=== PATIENT | female | born 1990 | race Caucasian/White ===

== ENCOUNTER → 2016-12-08 | Outpatient (CLI) | payer OTHER | LOC: FIMAGING 12:01 | PROVIDERS: ATTEND Advanced Practice Midwife | DX: O40.2XX0 Polyhydramnios, second trimester, not applicable or unspecified (principal); Z3A.21 21 weeks gestation of pregnancy ==

== ENCOUNTER → 2017-04-24 | Outpatient (CLI) | payer OTHER | LOC: FIMAGING 09:50 | PROVIDERS: ATTEND Advanced Practice Midwife | DX: O48.0 Post-term pregnancy (principal); Z3A.41 41 weeks gestation of pregnancy ==

== ENCOUNTER 2019-03-04 14:37 | Emergency (ER) | payer OTHER ==
[2019-03-04] MEDS ORDERED: KETOROLAC 30 MG/1 ML SDV IVP ONE (15:00)
[2019-03-04] MEDS ORDERED: ONDANSETRON 4 MG/2 ML VIAL IVP ONE (15:00)
[2019-03-04] MEDS ORDERED: ACETAMINOPHEN 500 MG TAB PO ONE (15:03)
[2019-03-04] MEDS ORDERED: NS 1,800 ML IV ONE (15:03)
--- NOTE | 2019-03-04 15:09 | EDPHY ---
H & P Stated Complaint: fever 103.5, n/v/d starting last night Time Seen by Provider: 03/04/19 14:55 HPI/ROS: CHIEF COMPLAINT: Vomiting, diarrhea and syncope HISTORY OF PRESENT ILLNESS: Patient is a 28-year-old female with a history of ulcerative colitis who states that she was in the middle of a flare and recently had her prednisone use decreased from 15-25 mg. She is followed by [facility]. She also takes Humira. She is in her normal state of health until yesterday evening after going out to dinner she developed nausea and vomiting as well. No blood in her vomit. She does have a slight amount of blood in her stool which is not unusual for her. She also developed a fever. She denies focal abdominal pain but she does have general abdominal cramping. Today her and her became concerned because she was sitting on the toilet and vomiting anterior trash can when she became lightheaded and slumped over against the wall. states that this happened 2 more times over the next hour while he was helping her in the bathroom. She does think that she lost consciousness. She denies chest pain, shortness of breath or palpitations. She states that in the past she has had to come to the ER to get rehydrated. Severity: Moderate Modifying factors: None REVIEW OF SYSTEMS: Constitutional: denies: chills, fever, recent illness, recent injury EENTM: denies: blurred vision, double vision, nose congestion Respiratory: denies: cough, shortness of breath Cardiac: denies: chest pain, irregular heart rate, lightheadedness, palpitations Gastrointestinal/Abdominal: See HPI Genitourinary: denies: dysuria, frequency, hematuria, pain Musculoskeletal: denies: joint pain, muscle pain Skin: denies: lesions, rash, jaundice, bruising Neurological: denies: headache, numbness, paresthesia, tingling, dizziness, weakness Hematologic/Lymphatic: denies: blood clots, easy bleeding, easy bruising Immunologic/allergic: denies: HIV/AIDS, transplant 10 systems reviewed and negative except as noted EXAM: GENERAL: Well-appearing, well-nourished and in no acute distress. HEAD: Atraumatic, normocephalic. EYES: Pupils equal round and reactive to light, extraocular movements intact, sclera anicteric, conjunctiva are normal. ENT: TMs normal, nares patent, oropharynx clear without exudates. Moist mucous membranes. NECK: Normal range of motion, supple without lymphadenopathy or JVD. LUNGS: Breath sounds clear to auscultation bilaterally and equal. No wheezes rales or rhonchi. HEART: Regular rate and rhythm without murmurs, rubs or gallops. ABDOMEN: Soft, nontender, normoactive bowel sounds. No guarding, no rebound. No masses appreciated. BACK: No CVA tenderness, no spinal tenderness, step-offs or deformities EXTREMITIES: Normal range of motion, no pitting or edema. No clubbing or cyanosis. NEUROLOGICAL: Cranial nerves II through XII grossly intact. Normal speech, normal gait. 5/5 strength, normal movement in all extremities, normal sensation , normal reflexes PSYCH: Normal mood, normal affect. SKIN: Warm, dry, normal turgor, no visible rashes or lesions. Source: Patient Exam Limitations: No limitations - Personal History LMP (Females 10-55): 8-14 Days Ago Current Tetanus/Diphtheria Vaccine: Yes Current Tetanus Diphtheria and Acellular Pertussis (TDAP): Yes - Medical/Surgical History Hx Asthma: No Hx Chronic Respiratory Disease: No Hx Diabetes: No Hx Cardiac Disease: No Hx Renal Disease: No Hx Cirrhosis: No Hx Alcoholism: No Hx HIV/AIDS: No Hx Splenectomy or Spleen Trauma: No Other PMH: ulcerative colitis - Family History Significant Family History: No pertinent family hx - Social History Smoking Status: Never smoked Alcohol Use: Sober Drug Use: None Constitutional: Initial Vital Signs Temperature (C) 38.1 C 03/04/19 14:46 Heart Rate 120 H 03/04/19 14:46 Respiratory Rate 16 03/04/19 14:46 Blood Pressure 117/80 03/04/19 14:46 O2 Sat (%) 95 03/04/19 14:46 O2 Delivery Mode Room Air Allergies/Adverse Reactions: No Known Allergies Allergy (Verified 03/04/19 14:49) Home Medications: Medication Instructions Recorded Apriso 0.375 gm 06/19/18 predniSONE 40 mg PO DAILY #10 tab 06/19/18 Humira 03/04/19 Medical Decision Making ED Course/Re-evaluation: 4:30 p.m. the patient is feeling much better. No more vomiting or diarrhea. Her abdominal exam is benign and nontender. She continues to decline CT scan. She has received 2 L of fluid. She has not yet urinated. Will add a 3rd L of fluid. She is tolerating p.o. White blood cell count is slightly elevated but similar to her previous. Likely from her chronic prednisone use. 5:50 p.m. Patient is feeling completely better. Abdominal exam remains benign. She declines prescriptions. She is eager to go home. Discussed indications for returning. Differential Diagnosis: Partial list of the Differential diagnosis considered include but were not limited to; gastritis, dehydration, food poisoning, ulcerative colitis and although unlikely based on the history and physical exam, I also considered appendicitis, biliary disease, ischemia, obstruction, ovarian cyst, torsion, , UTI. I discussed these differential diagnoses and the plan with the patient as well as the usual and expected course. The patient understands that the diagnosis is provisional and that in medicine we are not always correct and that further workup is often warranted. Usual and customary warnings were given. All of the patient's questions were answered. The patient was instructed to return to the emergency department should the symptoms at all worsen or return, otherwise to followup with the physician as we discussed. - Data Points Laboratory Results: Laboratory Results 03/04/19 15:20 03/04/19 15:20 03/04/19 03/04/19 03/04/19 16:56 15:20 15:20 WBC RBC Hgb Hct MCV MCH MCHC RDW Plt Count MPV Neut % (Auto) Lymph % (Auto) [place] % (Auto) Eos % (Auto) Baso % (Auto) Nucleat RBC Rel Count Absolute Neuts (auto) Absolute Lymphs (auto) Absolute Monos (auto) Absolute Eos (auto) Absolute Basos (auto) Absolute Nucleated RBC Immature Gran % Immature Gran # VBG Lactic Acid 0.6 mmol/L L mmol/L (0.7-2.1) Sodium Potassium Chloride Carbon Dioxide Anion Gap BUN Creatinine Estimated GFR Glucose Calcium Total Bilirubin Conjugated Bilirubin Unconjugated Bilirubin AST ALT Alkaline Phosphatase Total Protein Albumin Lipase Beta HCG, Qual NEGATIVE Urine Color PALE YELLOW Urine Appearance CLEAR Urine pH 7.0 (5.0-7.5) Ur Specific [place] 1.008 (1.002-1.030) Urine Protein NEGATIVE (NEGATIVE) Urine Ketones TRACE H (NEGATIVE) Urine Blood NEGATIVE (NEGATIVE) Urine Nitrate NEGATIVE (NEGATIVE) Urine Bilirubin NEGATIVE (NEGATIVE) Urine Urobilinogen NEGATIVE EU EU (0.2-1.0) Ur Leukocyte Esterase NEGATIVE (NEGATIVE) Urine RBC 1-3 /hpf /hpf (0-3) Urine WBC 1-3 /hpf /hpf (0-3) Ur Epithelial Cells TRACE /lpf /lpf (NONE-1+) Urine Glucose NEGATIVE (NEGATIVE) 03/04/19 03/04/19 15:20 15:20 WBC 13.33 10^3/uL H 10^3/uL (3.80-9.50) RBC 4.79 10^6/uL 10^6/uL (4.18-5.33) Hgb 13.1 g/dL g/dL (12.6-16.3) Hct 40.3 % % (38.0-47.0) MCV 84.1 fL fL (81.5-99.8) MCH 27.3 pg L pg (27.9-34.1) MCHC 32.5 g/dL g/dL (32.4-36.7) RDW 16.2 % H % (11.5-15.2) Plt Count 409 10^3/uL H 10^3/uL (150-400) MPV 9.9 fL fL (8.7-11.7) Neut % (Auto) 79.5 % H % (39.3-74.2) Lymph % (Auto) 10.9 % L % (15.0-45.0) [place] % (Auto) 8.6 % % (4.5-13.0) Eos % (Auto) 0.2 % L % (0.6-7.6) Baso % (Auto) 0.2 % L % (0.3-1.7) Nucleat RBC Rel Count 0.0 % % (0.0-0.2) Absolute Neuts (auto) 10.59 10^3/uL H 10^3/uL (1.70-6.50) Absolute Lymphs (auto) 1.45 10^3/uL 10^3/uL (1.00-3.00) Absolute Monos (auto) 1.15 10^3/uL H 10^3/uL (0.30-0.80) Absolute Eos (auto) 0.03 10^3/uL 10^3/uL (0.03-0.40) Absolute Basos (auto) 0.03 10^3/uL 10^3/uL (0.02-0.10) Absolute Nucleated RBC 0.00 10^3/uL 10^3/uL (0-0.01) Immature Gran % 0.6 % % (0.0-1.1) Immature Gran # 0.08 10^3/uL 10^3/uL (0.00-0.10) VBG Lactic Acid Sodium 133 mEq/L L mEq/L (135-145) Potassium 3.6 mEq/L mEq/L (3.5-5.2) Chloride 103 mEq/L mEq/L (97-110) Carbon Dioxide 21 mEq/l L mEq/l (22-31) Anion Gap 9 mEq/L mEq/L (6-14) BUN 10 mg/dL mg/dL (7-23) Creatinine 0.7 mg/dL mg/dL (0.6-1.0) Estimated GFR > 60 Glucose 87 mg/dL mg/dL (70-100) Calcium 8.6 mg/dL mg/dL (8.5-10.4) Total Bilirubin 1.0 mg/dL mg/dL (0.1-1.4) Conjugated Bilirubin 0.0 mg/dL mg/dL (0.0-0.5) Unconjugated Bilirubin 1.0 mg/dL mg/dL (0.0-1.1) AST 20 IU/L IU/L (14-46) ALT 34 IU/L IU/L (9-52) Alkaline Phosphatase 49 IU/L IU/L (38-126) Total Protein 6.2 g/dL L g/dL (6.3-8.2) Albumin 3.5 g/dL g/dL (3.5-5.0) Lipase 127 IU/L IU/L (23-300) Beta HCG, Qual Urine Color Urine Appearance Urine pH Ur Specific [place] Urine Protein Urine Ketones Urine Blood Urine Nitrate Urine Bilirubin Urine Urobilinogen Ur Leukocyte Esterase Urine RBC Urine WBC Ur Epithelial Cells Urine Glucose Medications Given: Discontinued Medications Acetaminophen (Tylenol) 1,000 mg PO EDNOW ONE Stop: 03/04/19 15:04 Last Admin: 03/04/19 16:07 Dose: Not Given Sodium Chloride (Ns) 1,800 mls @ 3,600 mls/hr 30 ml/kg infuse over 30 min ( 1800 ml) IV EDNOW ONE PRN Reason: Protocol Stop: 03/04/19 15:32 Last Admin: 03/04/19 15:27 Dose: 1,800 mls Sodium Chloride (Ns) 1,000 mls @ 0 mls/hr IV EDNOW ONE; Wide Open PRN Reason: Protocol Stop: 03/04/19 16:35 Last Admin: 03/04/19 16:41 Dose: 1,000 mls Ketorolac Tromethamine (Toradol) 15 mg IVP EDNOW ONE Stop: 03/04/19 15:01 Last Admin: 03/04/19 15:27 Dose: 15 mg Ondansetron HCl (Zofran) 4 mg IVP EDNOW ONE Stop: 03/04/19 15:01 Last Admin: 03/04/19 15:27 Dose: 4 mg Departure - Departure Disposition: Home, Routine, Self-Care Clinical Impression: Acute gastroenteritis Ulcerative colitis Qualifiers: Ulcerative colitis location: unspecified ulcerative colitis location Digestive disease complication type: without complication Qualified Code(s): K51.90 - Ulcerative colitis, unspecified, without complications Condition: Good Instructions: Gastroenteritis (ED), Ulcerative Colitis (ED) Referrals: America Chen MD [Primary Care Provider] - As per Instructions
[2019-03-04 15:37] LABS: PLATELET COUNT 409 10^3/uL (150-400)
[2019-03-04] MEDS ORDERED: NS 1,000 ML IV ONE (16:34)
[2019-03-04 18:11] VITALS: BP 97/61
== END 2019-03-04 18:10 | disposition home or self-care (01) ==
DX: K52.9 Noninfective gastroenteritis and colitis, unspecified (principal); K51.90 Ulcerative colitis, unspecified, without complications; E86.9 Volume depletion, unspecified; Z79.899 Other long term (current) drug therapy
CPT/HCPCS: 96374; J1885; J2405